=== PATIENT | male | born 1965 | race Caucasian/White ===

== ENCOUNTER 2016-11-08 06:37 | Day surgery (SDC) | payer BC ==
[2016-11-03 14:51] VITALS: BMI 34.8
[2016-11-08] MEDS ORDERED: LIDOCAINE HCL/PF 2% SDV 5ML VIAL ONE (08:20)
[2016-11-08] MEDS ORDERED: PROPOFOL 20 ML ONE ×3 (08:21)
[2016-11-08 09:15] VITALS: BP 121/65; PULSE 62; TEMP 98
--- NOTE | 2016-11-09 11:14 | PATH ---
Surgical Pathology Report Patient Name: YVETTE CORONA [facility]. Rec. #: [id number] /Age/Gender: 1965 (Age: 51) / M Account: [id number] Location: [facility]-ENDOSCOPY Taken: 11/08/2016 Received: 11/08/2016 Reported: 11/09/2016 Physicians: Juan Jasso M.D. Specimen(s) Received POLYP SIGMOID Clinical History Rule out colon cancer Polyp Final Diagnosis SIGMOID, POLYP, BIOPSY: TUBULAR ADENOMA. Electronically Signed Calli Adan M.D. Gross Description Received in formalin, labeled "sigmoid polyp" is a landeros, irregular portion of soft tissue measuring 0.2 cm. in greatest dimension. The specimen is submitted in toto in one cassette. 11/08/201611/08/2016
== END 2016-11-08 09:25 | disposition home or self-care (01) ==
LOC: FASU-ENDO 06:37
PROVIDERS: ATTEND Internal Medicine Gastroenterology
PROC: 0DBN8ZX Excision of Sigmoid Colon, Via Natural or Artificial Opening Endoscopic, Diagnostic (ICD-10-PCS; principal; 2016-11-08 08:31)
DX: Z12.11 Encounter for screening for malignant neoplasm of colon (principal); D12.5 Benign neoplasm of sigmoid colon
CPT/HCPCS: 88305-TC

== ENCOUNTER 2022-08-12 06:53 | Day surgery (SDC) | payer BC ==
[2022-08-10 14:33] VITALS: BMI 36.1
[2022-08-12] MEDS ORDERED: PROPOFOL 80 ML ONE (07:04)
[2022-08-12] MEDS ORDERED: LIDOCAINE HCL/PF 2% SDV 5ML VIAL ONE (07:04)
[2022-08-12 07:33] VITALS: RESP 16
[2022-08-12 08:43] VITALS: TEMP 97.8
[2022-08-12 11:43] VITALS: BP 111/69; PULSE 60
== END 2022-08-12 09:10 | disposition home or self-care (01) ==
LOC: FASU-ENDO 06:53
PROVIDERS: ATTEND Internal Medicine Gastroenterology
PROC: 0DJD8ZZ Inspection of Lower Intestinal Tract, Via Natural or Artificial Opening Endoscopic (ICD-10-PCS; principal; 2022-08-12 08:13)
DX: Z12.11 Encounter for screening for malignant neoplasm of colon (principal); Z86.010 Personal history of colon polyps